=== PATIENT | male | born 1945 | race Caucasian/White ===

== ENCOUNTER 2020-04-24 17:20 | Emergency (ER) | payer MEDICARE, SELFPAY ==
--- NOTE | ~2020-04-24 | XR_ITS ---
XR abdomen/kub 1V DATE: 04/24/2020 18:05 INDICATION: Constipation for 4 days. Low abdominal pain near bladder. TECHNIQUE: AP projection, 3 views COMPARISON: None FINDINGS: An IVC filter is present at the L2-3 region. No bowel obstruction. There is a prominent amount of feces at the rectosigmoid area. The psoas shadows are intact. No visceromegaly is detected. Multilevel degenerative disc disease of the lumbar spine. IMPRESSION: Prominent amount of feces in rectosigmoid region; no bowel obstruction IVC filter Reviewed, dictated and finalized at [facility]. Reviewed, dictated and finalized at [facility]. IMPRESSION: Prominent amount of feces in rectosigmoid region; no bowel obstruct ion IVC filter
[2020-04-24 17:23] VITALS: BP 142/55; PULSE 96; RESP 18; TEMP 36.4; O2SAT 96
--- NOTE | 2020-04-24 18:28 | ED.ABDPAIN ---
HPI - Abdominal Pain General Chief Complaint: Abdominal Pain <Surendra Tipton MD - Last Filed: 04/24/20 18:44> Stated Complaint: constipation <Surendra Tipton MD - Last Filed: 04/24/20 18:44> Time Seen by Provider: 04/24/20 17:32 <Surendra Tipton MD - Last Filed: 04/24/20 18:44> History of Present Illness HPI narrative: Patient is a 74-year-old male who presents ER with lower abdominal pain. Reports he feels like he is constipated and needs some help with passing stool. This happens to him regularly due to his Parkinson's disease. Last bowel movement was 3 days ago. He is unsure how large the bowel movement was. He has tried some MiraLAX and is also tried a mineral oil enema without improvement of his situation. is tried to manually disimpact him but reports there is not anything within the rectal vault for her to physically remove. <Surendra Tipton MD - Last Filed: 04/24/20 18:44> Related Data Allergies/Adverse Reactions: Allergies Allergy/AdvReac Type Severity Reaction Status Date / Time acetaminophen [From Vicodin] Allergy Rash Verified 04/24/20 17:28 hydrocodone [From Vicodin] Allergy Rash Verified 04/24/20 17:28 <Surendra Tipton MD - Last Filed: 04/24/20 18:44> Review of Systems Constitutional: Constitutional: Denies chills, Denies fever(s) and Denies weakness <Surendra Tipton MD - Last Filed: 04/24/20 18:44> Cardiovascular: Cardiovascular: Denies chest pain, Denies rapid heart rate and Denies radiating jaw, neck or arm pain <Surendra Tipton MD - Last Filed: 04/24/20 18:44> Respiratory: Respiratory: Denies cough and Denies dyspnea <Surendra Tipton MD - Last Filed: 04/24/20 18:44> Gastrointestinal: Gastrointestinal: Reports abdominal pain, Reports constipation, Denies nausea and Denies vomiting <Surendra Tipton MD - Last Filed: 04/24/20 18:44> [facility] Past Medical History Medical History: Medical History (Updated 04/24/20 @ 19:33 by Selvin Leigh DO) COPD (chronic obstructive pulmonary disease) Coronary artery disease Diabetes Glaucoma Hypercholesterolemia Hypertension Parkinson disease <Surendra Tipton MD - Last Filed: 04/24/20 18:44> Surgical History Surgical History: Surgical History (Updated 04/24/20 @ 18:43 by Surendra Tipton MD) History of appendectomy History of percutaneous coronary intervention History of right shoulder replacement <Surendra Tipton MD - Last Filed: 04/24/20 18:44> Social History Social History: Social History (Updated 04/24/20 @ 18:43 by Surendra Tipton MD) Social History: Former smoker, quit in 1971. Currently resides in [facility]. Gender identity (if verbalized by the patient): Male <Surendra Tipton MD - Last Filed: 04/24/20 18:44> Exam Narrative: Exam Narrative: GENERAL: Well-appearing, well-nourished, and in no acute distress. HEAD: Normocephalic, atraumatic. CHEST: Clear to auscultation. No respiratory distress. HEART: Regular rate and rhythm. Normal peripheral pulses. ABDOMEN: Soft, mild suprapubic discomfort, nondistended. EXTREMITIES: Normal range of motion. 2+ edema in the hands bilaterally and 2+ edema in the lower extremities. SKIN: Warm, dry, no rash. NEURO: Resting tremor to the upper and lower extremities. Occasional stutter. Alert and oriented x3. PSYCH: Normal mood and affect. <Surendra Tipton MD - Last Filed: 04/24/20 18:44> Course Course Emergency Course: Patient informed of results. Will attempt a soapsuds enema for therapeutic relief. <Surendra Tipton MD - Last Filed: 04/24/20 18:44> Care turned to myself at shift change seen evaluate myself. Patient with a large bowel movement following enema states feeling much better ready for discharge. Per patient and patient is on MiraLAX at home Discussed with patient results of workup and diagnosis. Discussed need for follow-up with primary care, proper use of medic
[2020-04-24 20:06] VITALS: BP 150/60; PULSE 78; RESP 20; O2SAT 99
== END 2020-04-24 20:07 | disposition home or self-care (01) ==
PROVIDERS: Emergency Provider Emergency Medicine
DX: K59.00 Constipation, unspecified (principal); J44.9 Chronic obstructive pulmonary disease, unspecified; I25.10 Atherosclerotic heart disease of native coronary artery without angina pectoris; E11.9 Type 2 diabetes mellitus without complications; E78.00 Pure hypercholesterolemia, unspecified; I10 Essential (primary) hypertension; G20 Parkinson's disease; H40.9 Unspecified glaucoma; Z96.611 Presence of right artificial shoulder joint; Z87.891 Personal history of nicotine dependence
CPT/HCPCS: 74018; 99283